=== PATIENT | female | born 1960 | race African-American/Black ===

== ENCOUNTER 2020-05-20 02:38 | Emergency (ER) | payer OTHER ==
[~2020-05-20] VITALS: Ht 160 cm; Wt 68.0 kg
[2020-05-20 03:36] LABS: HEMATOCRIT. 41.3 % (36.0-48.0); HEMOGLOBIN. 13.9 g/dL (12.0-16.0); MEAN CORPUSCULAR HEMOGLOBIN 24.6 pg (28.0-32.0); MEAN CORPUSCULAR VOLUME 72.8 fL (81.0-99.0); PLATELET 253 x1000/uL (130-400); RED BLOOD CELL COUNT 5.67 mill/uL (4.2-5.4); RED CELL DISTRIBUTION WIDTH 14.1 % (11.6-14.6)
[2020-05-20 03:43] LABS: CHLORIDE 103 mEq/L (98-107)
[2020-05-20 04:00] VITALS: BP 157/81
[2020-05-20 04:58] LABS: ATYPICAL LYMPHOCYTES 4; PLATELET ESTIMATE NORMAL
== END 2020-05-20 04:35 | disposition home or self-care (01) ==
LOC: ER 03:12
DX: I16.0 Hypertensive urgency (principal); R20.2 Paresthesia of skin; I10 Essential (primary) hypertension; Z88.6 Allergy status to analgesic agent; Z86.73 Personal history of transient ischemic attack (TIA), and cerebral infarction without residual deficits
CPT/HCPCS: 36415; 80053; 83880; 84484; 85025; 93005; 99284